=== PATIENT | female | born 1955 | race Caucasian/White ===

== ENCOUNTER → 2021-05-21 13:39 | Outpatient (CLI) | payer BC, SELFPAY ==
--- NOTE | 2021-05-21 | DI.US.S_ITS ---
ULTRASOUND OF RIGHT BREAST AND AXILLA: 05/21/2021 CLINICAL: Palpable right axilla lump. Comparison is made to exams dated: 05/21/2021 mammogram - [facility], 11/12/2020 mammogram - [facility], 04/17/2001 mammogram, and 07/13/2015 mammogram - outside facility. Real-time ultrasound of the right breast axilla was performed. Velasco scale images of the real-time examination were reviewed. No significant abnormalities were seen sonographically in the right axilla in the region of the palpable abnormality. IMPRESSION: NEGATIVE There is no sonographic evidence of malignancy at the palpable abnormality in the right axilla. A 1 year screening mammogram is recommended. Exam findings were conveyed to the patient. Patient is advised to monitor for significant change. Clinical follow-up as needed. This exam was interpreted at Station ID: [id number]. Electronically Signed By: Brian Lora M.D. slc/:05/21/2021 15:22:29 letter sent: Normal Exam Ultrasound BI-RADS: 1 Negative
--- NOTE | 2021-05-21 | DI.MG.S_ITS ---
BILATERAL DIGITAL DIAGNOSTIC MAMMOGRAM 3D/2D: 05/21/2021 CLINICAL: Right breast lump. Comparison is made to exams dated: 11/12/2020 mammogram - [facility], 04/17/2001 mammogram, and 07/13/2015 mammogram - outside facility. There are scattered fibroglandular elements in both breasts. There are benign calcifications in both breasts. No significant masses, calcifications, or other findings are seen in either breast. There has been no significant interval change. IMPRESSION: INCOMPLETE: NEEDS ADDITIONAL IMAGING EVALUATION No mammographic evidence of malignancy. A targeted ultrasound of the right axillary palpable abnormality is recommended and will immediately follow. This exam was interpreted at Station ID: [id number]. NOTE: For mammograms, a report in lay terms will be sent to the patient. Approximately 15% of breast malignancies will not be visualized mammographically. In the management of a palpable breast mass, a negative mammogram must not discourage biopsy of a clinically suspicious lesion. Electronically Signed By: Brian Lora M.D. slc/:05/21/2021 14:14:49 ACR BI-RADS Category 0: Incomplete [id number]
== END ==
PROVIDERS: PCP Registered Nurse; Referring Provider Family Medicine; Visit Provider Family Medicine
DX: R92.8 Other abnormal and inconclusive findings on diagnostic imaging of breast (principal); R92.1 Mammographic calcification found on diagnostic imaging of breast; N63.31 Unspecified lump in axillary tail of the right breast
CPT/HCPCS: 76882; 77066; G0279

== ENCOUNTER → 2023-04-02 15:18 | Outpatient (CLI) | payer MEDICARE, OTHER, SELFPAY ==
--- NOTE | 2023-04-02 15:45 | DI.MRI.S_ITS ---
PROCEDURE: MR HAND LT WO CON INDICATIONS: LEFT HAND PAIN TECHNIQUE: Noncontrast coronal T1 spin echo and T2 fast spin echo with fat saturation, axial proton density fast spin echo and T2 fast spin echo with fat saturation, sagittal T1 spin echo and STIR through the hand and fingers. COMPARISON: None. FINDINGS: Image quality: Excellent. Bones: Osseous edema within the 2nd middle and distal phalanges is most likely reactive to the adjacent tendon tear, although partial osseous avulsion is not excluded. No intra-osseous lesions. Degenerative cystic changes are seen in the wrist, most notably at the 1st carpometacarpal joint and triscaphe joint. Degenerative changes are also noted at the 1st metacarpophalangeal joint and throughout the interphalangeal joints of the fingers. Soft tissues: There is complete tearing of the 2nd flexor digitorum profundus tendon at its insertion onto the 2nd distal phalangeal base with proximal tendon retraction to the level of the proximal phalangeal head, measuring approximately 3 cm. There is laxity and redundancy of the tendon at the level of the metacarpals. The 2nd flexor digitorum superficialis tendon appears to remain intact, with intact insertions onto the middle phalangeal base. There is mild tenosynovitis of the flexor pollicis longus tendon and the 3rd and 4th flexor tendons at the level of the metacarpals. No additional flexor tendon tear is seen. Mild focal de Quervain tenosynovitis of the 1st compartment extensor tendons at the level of the distal carpal row. Visualized extensor tendons otherwise appear to be intact. Soft tissue edema is seen throughout the index finger. IMPRESSION: 1. Complete tearing of the 2nd flexor digitorum profundus tendon at its insertion onto the distal phalangeal base with proximal tendon retraction measuring approximately 3 cm to the level of the proximal phalangeal head. The 2nd flexor digitorum superficialis tendon appears to remain intact. 2. Mild tenosynovitis of the 3rd and 4th flexor tendons and the flexor pollicis longus tendon at the level of the metacarpals. 3. Mild according tenosynovitis involving the 1st extensor compartments of the wrist at the level of the distal carpal row. 4. 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 Approved by: Dante Luciano M.D. on 04/03/2023 at 13:37
== END ==
PROVIDERS: PCP Registered Nurse; Referring Provider Orthopaedic Surgery; Visit Provider Orthopaedic Surgery
DX: S56.122A Laceration of flexor muscle, fascia and tendon of left index finger at forearm level, initial encounter (principal); M65.842 Other synovitis and tenosynovitis, left hand; M19.042 Primary osteoarthritis, left hand; M19.032 Primary osteoarthritis, left wrist; X58.XXXA Exposure to other specified factors, initial encounter
CPT/HCPCS: 73218

== ENCOUNTER 2023-04-06 12:57 | Day surgery (SDC) | payer MEDICARE, OTHER, SELFPAY ==
[2023-04-05 10:48] VITALS: BMI 25.7
[2023-04-06] VITALS (11 sets, daily range): BP systolic 114–159; BP diastolic 68–100; PULSE 75–92; RESP 11–18; TEMP 36.4–36.7; O2SAT 93–99; BMI 25.7
[2023-04-06] MEDS: LACTATED RINGERS 1,000 ML 42 ML IV (13:33)
--- NOTE | 2023-04-06 14:05 | PM.PREOP ---
Pre-operative Note Interval Note History & Physical reviewed/Exam performed by Physician: Yes Changes to H&P: No
[2023-04-06] MEDS: CEFAZOLIN VIAL 1 GM in SODIUM CHLORIDE 0.9% 100 ML IV (14:40)
--- NOTE | 2023-04-06 14:56 | SUR.OPER ---
Supine on padded OR bed, head on pillow, arms secured on padded arm boards at <90 degrees abduction, legs uncrossed, safety belt at thigh, tape over blanket over lower legs. operative hand on hand table
[2023-04-06] MEDS: BUPIVACAINE 0.5% (PF) 30 ML, EPINEPHrine 0.15 MG INJ (15:08)
[2023-04-06] MEDS: fentaNYL 100 MCG/2 ML INJ IV (16:18)
[2023-04-06] MEDS: HYDROMORPHONE 2 MG INJ IV ×2 (16:21→16:27)
--- NOTE | 2023-04-06 16:24 | PM.OP.1 ---
Operative Date/Time/Diagnoses Date of procedure: 04/06/23 Time of procedure: 15:00 Pre-op diagnosis: Rerupture of a left index finger FDP tendon repair Post-op diagnosis: same Procedure & Clinicians Procedure: Rerepair of the index finger FDP tendon Same procedure as scheduled: Yes Indications: Rupture of the FDP tendon to the left index finger Surgeon: Kwaku Cantrell Click Yes if Unassisted: Yes Anesthesia Type: General Operative Notes Findings: Rupture of the FDP tendon with retraction down to the proximal phalanx. No injury to the FDS tendon. Closure Type: primary Estimated Blood Loss (mL): 5 Tourniquet time (min): 75 Procedure in detail: On date of service, patient was met in the holding area where operative site was signed and witnessed by the OR staff. The surgery was discussed with the patient and any remaining questions or concerns she had were answered fully. Patient was taken back to the operating theater placed on the operating table in a supine position. Great care was taken to ensure that all bony prominences were appropriately padded. Well-padded tourniquet was placed up along the upper extremity and a time-out was performed verifying patient's name procedure and operative site. Left arm was prepped and draped in the normal sterile fashion. Esmarch was used to exsanguinate the limb and the tourniquet was turned up to 250 mmHg. Fifteen blade was used to reopen the previous surgical incision. Deep knife was used to continued sharp dissection until we had good visualization of the flexor tendons. No sign of any injury to the FDS tendons. There was signs of rupture the FDP tendon with retraction of the proximal tendon to the proximal phalanx. The Supramid suture was still attached to the proximal tendon. We are able to use that suture to pull it back through the tunnel to the distal phalanx. We initially attempted to use suture anchors to help secure the tendon to the distal phalanx but patient's bone was so soft the anchors would not take hold. So the tendon was then sutured back to the remaining FDP tendon stump. Once we felt we had an adequate repair the wound was copiously irrigated closed with nylon. Patient's hand was cleaned, dried, dressed and she was placed into a splint and taken to the PACU in stable condition. Complications: none Post-operative Condition: stable Disposition: PACU Plan for aftercare: Patient will follow our postoperative protocol for flexor tendon repair.
[2023-04-06] MEDS: HYDROCODONE/ACET 5/325 TABLET 1 TAB PO ×2 (16:35→17:32)
== END 2023-04-06 17:45 | disposition home or self-care (01) ==
PROVIDERS: PCP Registered Nurse; Referring Provider Orthopaedic Surgery; Visit Provider Orthopaedic Surgery
PROC: (CPT 26356; principal; 2023-04-06 14:15)
DX: S66.121A Laceration of flexor muscle, fascia and tendon of left index finger at wrist and hand level, initial encounter (principal)
CPT/HCPCS: 26356; J0171; J0690; J1100; J1170; J2250; J2405; J2704; J3010

== ENCOUNTER → 2023-10-17 15:15 | Outpatient (CLI) | payer MEDICARE, OTHER, SELFPAY ==
--- NOTE | 2023-10-17 | DI.MRI.S_ITS ---
PROCEDURE: MR HAND LT WO CON INDICATIONS: Pain in left hand TECHNIQUE: Noncontrast oblique coronal T1 spin echo and T2 fast spin echo with fat saturation, axial and sagittal T2 fast spin echo with fat saturation, through the thumb. COMPARISON: [facility], MR, MR HAND LT WO CON, 04/02/2023, 15:25. FINDINGS: Image quality: Excellent. Bones: The bones are normally aligned, without marrow contusions or fractures. No intra-osseous lesions. Mild to moderate degenerative changes are seen at the 1st carpometacarpal and triscaphe joints. Mild scattered degenerative changes in the interphalangeal joints of the fingers. Soft tissues: There is thickening of the 2nd flexor digitorum profundus tendon at the level of the palm extending into the finger, consistent with prior tendon rupture and surgical repair. The distal tendon appears heterogeneous and thickened, but no recurrent full-thickness tearing is seen. Mild flexor pollicis longus tenosynovitis. The remaining visualized flexor and extensor tendons appear to be intact. There is a small distal radioulnar joint effusion. No ganglion cysts. IMPRESSION: 1. Postsurgical changes from repair of the 2nd digitorum profundus tendon. The repaired tendon appears thickened and mildly heterogeneous without recurrent full-thickness tearing identified. 2. Mild flexor pollicis longus tenosynovitis. 3. Gial-xu-jhhsgoas degenerative changes in the wrist and fingers. Approved by: Dante Luciano M.D. on 10/19/2023 at 8:32
== END ==
PROVIDERS: PCP Registered Nurse; Referring Provider Orthopaedic Surgery; Visit Provider Orthopaedic Surgery
DX: M19.042 Primary osteoarthritis, left hand (principal); M65.842 Other synovitis and tenosynovitis, left hand; M79.642 Pain in left hand; M25.642 Stiffness of left hand, not elsewhere classified; S66.822S Laceration of other specified muscles, fascia and tendons at wrist and hand level, left hand, sequela; S61.402S Unspecified open wound of left hand, sequela
CPT/HCPCS: 73218

== ENCOUNTER 2025-08-30 13:58 | Emergency (ER) | payer MEDICARE, OTHER, SELFPAY ==
[2025-08-30 14:07] VITALS: BP 164/97; PULSE 91; RESP 16; TEMP 37; O2SAT 98; BMI 22.1
--- NOTE | 2025-08-30 14:15 | ED.BACK ---
HPI - Back Pain/Injury General Chief Complaint: Back Pain/Injury Stated Complaint: back pain 1 wk Time Seen by Provider: 08/30/25 14:13 Source: patient History of Present Illness HPI Narrative: 70-year-old female presents with low back pain radiating around to the right lower hip and down the leg despite taking hydrocodone and ibuprofen with no significant relief of her symptoms. She denies any fever, chills, bodyaches, nausea, vomiting, diarrhea, constipation, rectal bleeding, chest pain, shortness of breath. Nothing makes it better but standing makes it worse. Other than what is stated 14 point review of system is negative. Related Data Previous Rx's ?Medication ?Instructions ?Recorded hydrocodone 5 mg-acetaminophen 325 1 tab PO Q4-6H PRN pain #20 tabs 08/30/25 mg tablet Allergies Allergy/AdvReac Type Severity Reaction Status Date / Time No Known Drug Allergies Allergy Verified 08/30/25 14:07 Review of Systems Review of Systems ROS Unobtainable: All systems reviewed & are unremarkable except as noted in HPI and below Patient History Surgical History (Updated 04/05/23 @ 10:51 by Ariadne Bryan RN) History of orthopedic surgery (~02/2023) Social History household members: spouse alcohol intake: current Smoking Status: Never smoker alcohol intake frequency: a few times a month Exam Narrative Exam Narrative: GENERAL: [70] year old patient appears stated age. Well-developed patient, in mild distress. HEAD: Atraumatic. Normocephalic. EYES: Pupils equal round and reactive. Extraocular motions intact. No scleral icterus. No injection or drainage. EXTREMITIES: No edema or joint tenderness. BACK: R paralumbosacral region ttp No flank tenderness. NEURO: AOx3. SKIN: No rash or erythema of visible areas Initial Vital Signs Initial Vital Signs: Vital Signs Temperature 98.6 F 08/30/25 14:07 Pulse Rate 91 H 08/30/25 14:07 Respiratory Rate 16 08/30/25 14:07 Blood Pressure 164/97 H 08/30/25 14:07 Pulse Oximetry 98 08/30/25 14:07 Oxygen Delivery Method Room Air 08/30/25 14:07 Course Vital Signs Vital signs: Vital Signs - 8 hr 08/30/25 14:07 Temperature 98.6 F Pulse Rate 91 H Respiratory Rate 16 Blood Pressure 164/97 H Pulse Oximetry 98 Oxygen Delivery Method Room Air MDM - Back Pain/Injury Imaging Data Extremity x-ray #1: Radiologist's Impression: [address] [address] [address] Scan Report Signed Patient: Karissa Castillo MR#: [id number] : 1955 Acct:[id number] Age/Sex: 70 / F Date of Service: 08/30/25 Loc: ED Accession Number: [id number] Procedure: CT lumbar spine wo con Ordering Provider: Willie Collins D.O. PROCEDURE: CT LUMBAR SPINE WO CON INDICATIONS: Low back pain TECHNIQUE: Noncontrast 3 mm thick sections acquired from the T12 level to the sacrum. Sagittal and coronal reformats were constructed. For radiation dose reduction, the following was used: automated exposure control. COMPARISON: None. FINDINGS: Image quality: Excellent. Bones: There is normal bony alignment given supine positioning. No acute vertebral body compression fractures. No suspicious lytic or blastic bony lesions. No pars defects. Degenerative changes of the lumbosacral junction are moderate. Lower lumbar facet arthropathy is moderate to severe. Soft tissues: No retroperitoneal masses or hematomas. Visualized aorta is normal in caliber. A nonobstructing left renal stone is present. IMPRESSION: Moderate lumbosacral degenerative disc disease without acute abnormality. Dictated by: Brianna Emmanuel M.D. on 08/30/2025 at 14:14 Approved by: Brianna Emmanuel M.D. on 08/30/2025 at 14:19 [facility] Narrative Medical decision making narrative: All lab work, vital signs, nurse triage note, medication list, previous ER visits, and all imaging studies reviewed. UA is normal patient received trigger point injections for which patient is pain-free now. CT lumbar spine showed moderate lumbosacral degenerative disc disease without acute abnormality. Differential diagnosis arthritis sciatica piriformis syndrome spondylosis spondylolisthesis. DC home on hydrocodone rx and to follow up with PCP Discharge Plan Departure Patient Disposition: Home Clinical Impression: Sciatica Qualifiers: Laterality: right Qualified Code(s): M54.31 - Sciatica, right side Instructions: DI for Sciatica Activity Restrictions/Additional Instructions: Return with new or worsening symptoms. Take medication as directed. Follow up PCP next week if no improvement in symptoms. Prescriptions: New hydrocodone-acetaminophen 5-325 mg tablet 1 tab PO Q4-6H PRN (Reason: pain) Qty: 20 0RF Referrals: Brooklyn Jackson FNP-C [Primary Care Provider, Family Practice] Stand Alone Forms: Patient Portal/API
[2025-08-30] MEDS: LIDOCAINE 2% INJ MDV 20ML 20 ML INJ (14:25)
[2025-08-30] MEDS: TRIAMCINOLONE 40 MG/ML VIAL INJ (14:25)
[2025-08-30 14:26] LABS: Appearance Urine UA SL CLOUDY; Bilirubin Urine UA NEGATIVE (NEGATIVE); Color Urine UA YELLOW; Glucose Urine UA NEGATIVE (Negative); Ketones Urine UA NEGATIVE (NEGATIVE); Leukocyte Esterase Urine UA NEGATIVE (NEGATIVE); Nitrite Urine UA NEGATIVE (Negative); Occult Blood Urine UA NEGATIVE (Negative); Protein Urine UA NEGATIVE (Negative); Specific Gravity Urine UA 1.010 (1.000-1.035); Urobilinogen Urine UA 0.2 E.U./dL (0.2)
[2025-08-30 14:27] LABS: pH Urine UA 7.0 (4.5-8.0)
[2025-08-30 14:31] LABS: Culture Indicated Urine Cult Not Indicated
[2025-08-30 15:07] VITALS: BP 116/76; PULSE 90; RESP 18; O2SAT 98
== END 2025-08-30 15:46 | disposition home or self-care (01) ==
PROVIDERS: Emergency Provider Family Medicine; PCP Registered Nurse
DX: M54.31 Sciatica, right side (principal)
CPT/HCPCS: 20553; 72131; 81001; 99283; 99284